=== PATIENT | female | born 1955 | race Caucasian/White ===

== ENCOUNTER 2017-07-31 10:42 | Outpatient (CLI) | payer BC ==
--- NOTE | 2017-07-31 11:36 | MMO ---
BILATERAL SCREENING MAMMOGRAM: DATE: 07/31/17 HISTORY: 61-year-old female for screening mammography. COMPARISON: 07/05/16, 06/30/15, 06/30/14. FINDINGS: Bilateral MLO and CC views of the breasts show scattered fibroglandular breast tissue. There are bhupinder ign-appearing calcifications in the right breast. Vascular calcifications are seen. There is no evid ence of suspicious mass, suspicious cluster of microcalcifications, or area of architectural distort ion. Interpretation of this mammogram was performed with the assistance of computer-aided detection. IMPRESSION: BIRADS 2: Benign Finding(s) Annual screening mammography is recommended. POS: LOUIS
== END 2017-07-31 10:43 | disposition home or self-care (01) ==
LOC: SCSMAMMO 10:42
PROVIDERS: ATTEND Family Medicine
DX: Z12.31 Encounter for screening mammogram for malignant neoplasm of breast (principal)
CPT/HCPCS: 77067; G0202

== ENCOUNTER 2017-12-04 16:32 | Outpatient (CLI) | payer BC | END 2017-12-04 16:33 | disposition home or self-care (01) | LOC: BICMRI 16:32 | PROVIDERS: ATTEND Anesthesiology Pain Medicine | DX: M54.16 Radiculopathy, lumbar region (principal); M48.061 Spinal stenosis, lumbar region without neurogenic claudication; M12.88 Other specific arthropathies, not elsewhere classified, other specified site | CPT/HCPCS: 72148 ==

== ENCOUNTER 2018-01-08 09:58 | Outpatient (CLI) | payer BC ==
[2018-01-08 11:11] LABS: Hemoglobin 13.5 g/dL (12.0-16.0); Mean Corpuscular HGB CONC 33.5 g/dL (32.0-36.0); Mean Corpuscular Hemoglobin 33.3 pg (27.0-31.0); Mean Corpuscular Volume 99.6 fl (81.0-99.0); Mean Platelet Volume 7.1 fL (7.4-10.4); Platelet Count 290 thou/uL (130-400); RBC Distribution Width 11.7 % (11.5-14.5); Red Blood Cell (RBC) Count 4.06 mill/uL (4.20-5.40); White Blood Cell (WBC) Count 9.7 thou/uL (4.8-10.8)
[2018-01-08 11:18] LABS: INR-International Normal Ratio 0.9; PTT 29.7 SEC (22.9-36.1); Prothrombin Time 12.5 SEC (12.0-14.7)
[2018-01-08 11:31] LABS: Anion Gap 11 mmol/L (10-20); BUN (Urea Nitrogen) 19 mg/dL (9.8-20.1); Calc. Creatinine Clearance 0 mL/min (70-130); Calcium 9.8 mg/dL (7.8-10.44); Carbon Dioxide 27 mmol/L (23-31); Chloride 103 mmol/L (98-107); Estimated GFR-MDRD 78; Glucose 93 mg/dL (80-115); Potassium 4.2 mmol/L (3.5-5.1); Sodium 137 mmol/L (136-145)
== END 2018-01-08 09:59 | disposition home or self-care (01) ==
LOC: LABBT 09:58
PROVIDERS: ATTEND Neurological Surgery
DX: Z01.818 Encounter for other preprocedural examination (principal); M48.061 Spinal stenosis, lumbar region without neurogenic claudication
CPT/HCPCS: 80048; 85027; 85610; 85730; 93005; 93010

== ENCOUNTER 2018-01-12 05:50 | Day surgery (SDC) | payer BC ==
[2018-01-12] MEDS ORDERED: CEFAZOLIN/Water 2 GM/20 ML SYRINGE ONE ×2 (06:00→06:50)
--- NOTE | 2018-01-12 06:28 | HP ---
HISTORY OF PRESENT ILLNESS: Ms. Rincon is a 62-year-old female that presents with low-back pain symptoms with neurogenic claudication. She has had these symptoms for about a year and has gotten worse over the time. She is unable to walk more than a block without pain in the leg. Leg pain is made worse with standing and walking. The pain is worse in the right leg, sometimes relieved with pain medication and bending forward and sitting down. She has had no physical therapy or injections in low back. She has had severe stenosis at L4- L5 that had differential of osteomyelitis or diskitis on MRI. However, she does not have any elevated ESR, CRP, or white blood cell count. IMAGING: MRI of the lumbar spine at [facility]. REVIEW OF SYSTEMS: Ten-point review of systems completed and is otherwise negative unless stated in the above HPI. PAST MEDICAL HISTORY: Hypertension, hyperlipidemia, rosacea. PAST SURGICAL HISTORY: x2, oophorectomy, colonoscopy, cystoscopy. FAMILY HISTORY: Father is diseased with Alzheimer's, hypertension. Mother is with colon cancer. She diagnosed with hypertension. Paternal grandfather is . Maternal grandmother is . SOCIAL HISTORY: The patient is a nonsmoker, no alcohol or drug use. She works at [employer] and she is . MEDICATIONS: 1. Nystatin 20 mg tablet 1 tablet every night before bed. 2. Aleve 220 mg tablet 1 tablet orally once a day. 3. Nystatin and triamcinolone topical 100,000 units per 0.1% cream applied topically p.m. 4. Potassium chloride ER 10 mEq tablet one tablet by mouth. 5. Benicar HCT 40/25 mg tablet 1 tablet by mouth each day. 6. Sodium sulfacetamide and sulfur topical 10% lotion apply daily. 7. Alprazolam 0.25 mg tablet 1/2 tablet twice a day p.r.n. 8. Toprol-XL 100 mg tablet extended release 24-hour 1 tablet once a day. 9. Metronidazole 1% gel application to affected area. 10. 1 hour prior to injction. ALLERGIES: GAVIN INHIBITORS causes facial swelling. PHYSICAL EXAMINATION: HEENT: Normocephalic, atraumatic. Hearing intact. Moist mucous membranes. Trachea is midline. Eyes: Pupils are equal and reactive to light. Extraocular muscles are intact. Sclerae is white, nonicteric. PSYCHIATRIC: Normal mood and affect. CARDIOVASCULAR: RRR, no distal cyanosis or clubbing noted Neurological: Sensory deficits bilaterally in the thighs, legs, and bent forward. ASSESSMENT: Lumbar region with neurogenic claudication. PLAN: The patient has failed conservative therapy with transforaminal epidural steroid injections and epidural steroid injections from Dr. Ball. She would like to opt for a laminectomy due to the leg pain. Dr. Gatica has offered a L4 through S1 laminectomy. If there is any further questions, please feel free to contact Neurosurgery. ERIN
[2018-01-12] MEDS ORDERED: Thrombin 5000 UNITS/5 ML VIAL ONE (06:31)
[2018-01-12] MEDS ORDERED: Bupivacaine HCl 0.5%/Epinephrine 1:200,000/PF 30 ml Vial ONE (06:31)
[2018-01-12] MEDS ORDERED: Sodium Chloride 0.9% 10 ML ONE ×2 (06:31→08:56)
[2018-01-12] MEDS ORDERED: Phenylephrine HCL 10 MG/ML VIAL ONE (06:42)
[2018-01-12] MEDS ORDERED: Fentanyl 250 MCG/5 ML VIAL ONE ×2 (06:47→09:53)
[2018-01-12] MEDS ORDERED: Midazolam HCl 2 mg/2 ml Vial ONE (06:50)
[2018-01-12] MEDS ORDERED: Ketorolac Tromethamine 30 MG/ML VIAL IM/IV PRN (09:58)
[2018-01-12] MEDS ORDERED: Non-Formulary Medication 1 EACH PO PRN (09:58)
[2018-01-12] MEDS ORDERED: Ondansetron HCl/PF 4 MG/2 ML Vial IVP PRN (09:58)
[2018-01-12] MEDS ORDERED: Promethazine HCl 25 MG/ML VIAL IM/IV PRN (09:58)
[2018-01-12] MEDS ORDERED: Ketorolac Tromethamine 30 MG/ML VIAL ONE (10:03)
--- NOTE | 2018-01-12 10:10 | OP ---
DATE OF PROCEDURE: 01/12/2018 SURGEON: Giovanni Gatica M.D. URBAN FORESTER: Clark West PA-C. PREOPERATIVE INDICATION: Treat pain, prevent neurological deterioration. PREOPERATIVE DIAGNOSES: Multilevel lumbar stenosis. POSTOPERATIVE DIAGNOSIS: Multilevel lumbar stenosis. OPERATIVE PROCEDURE: Decompressive laminectomy, medial facetectomy, foraminotomy L3-4, L4-5, L5-S1. PREOPERATIVE MEDICATION: Ancef 2 grams IV. DRAIN NUMBER: Zero. DRAIN TYPE: None. OPERATIVE DICTATION: The patient was brought to the operating room. General endotracheal anesthesia was induced. The patient was positioned on the operating table with her chest and hips supported by gel-filled chest rolls in a prone position. A lateral fluoro radiograph was used to plan our incisi on. The lumbar skin was sterilely prepped and draped. We opened our incision with a 10 blade knife and controlled bleeding with bipolar cautery. We used monopolar cautery to dissect through subcutane ous tissues to the thoracodorsal fascia. We incised the fascia in the midline and reflected the para spinal muscles off the spinous process and lamina of L3, L4, L5, and S1. A self-retaining retractor was placed. A lateral fluoro radiograph was used to confirm the levels upon which we were operating. We started our planned decompression at L4-5. We used bone rongeurs to remove the spinous processe s and Kerrison rongeurs to fashion a laminectomy. At L5-S1 we did the same thing. We undermined the lateral recesses. We ensured that the traversing and exiting nerve roots were well decompressed. T he stenosis above the L4 was more impressive even than on the MRI scan. We carried our decompressio n all the way to the top of L4 and removed the yellow ligament at L3-4 interspace as well as inferior portion of L3 lamina. We performed medial facetectomy there as well. We decompressed the L4 nerve roots in the lateral recess and out the foramen. We performed foraminotomy. We then ensured our dec ompression was adequate with Trejo ball probe. We passed this through the lateral recess and out th e foramen at L3-4 with L4 nerve root at L4-5 and L5-S1. We performed foraminotomies using foraminoto my Kerrisons over each of the 6 exiting nerve roots. We irrigated copiously with bacitracin irrigati on. We waxed the bone edges. We controlled ventral epidural bleeding with gentle bipolar cautery. We infused local anesthetic in the paraspinal muscles. We closed the wound in anatomic layers. We a pplied a sterile dressing. This was a clean case and no contamination.
[2018-01-12] MEDS ORDERED: HYDROcodone/Acetaminophen 5/325 mg Tablet ONE (12:46)
[2018-01-12] MEDS ORDERED: Lidocaine 1% PF 5 ML VIAL ONE (16:54)
[2018-01-12] MEDS ORDERED: PHENYLEPHRINE-NS 100 MCG/ML 10 ML SYRINGE ONE (16:54)
[2018-01-12] MEDS ORDERED: Dexamethasone 20 MG/5 ML VIAL ONE (16:54)
[2018-01-12] MEDS ORDERED: PROPOFOL 200 MG/20 ML VIAL ONE (16:54)
[2018-01-12] MEDS ORDERED: Ondansetron HCl/PF 4 MG/2 ML Vial ONE (16:54)
[2018-01-12] MEDS ORDERED: Glycopyrrolate 0.2 MG/ML 5 ML SYRINGE ONE (16:54)
== END 2018-01-12 15:04 | disposition home or self-care (01) ==
LOC: SDC 05:50
PROVIDERS: ATTEND Neurological Surgery
PROC: 01NB0ZZ Release Lumbar Nerve, Open Approach (ICD-10-PCS; principal; 2018-01-12)
DX: M48.062 Spinal stenosis, lumbar region with neurogenic claudication (principal); M48.07 Spinal stenosis, lumbosacral region; I10 Essential (primary) hypertension; E78.5 Hyperlipidemia, unspecified; L71.9 Rosacea, unspecified; F41.9 Anxiety disorder, unspecified; E66.9 Obesity, unspecified; Z68.39 Body mass index [BMI] 39.0-39.9, adult; Z79.1 Long term (current) use of non-steroidal anti-inflammatories (NSAID); Z79.52 Long term (current) use of systemic steroids; Z79.899 Other long term (current) drug therapy; Z88.8 Allergy status to other drugs, medicaments and biological substances
CPT/HCPCS: 76001; 96374; A4216; J0131; J0670; J1100; J1885; J2001; J2250; J2370; J2405; J2704; J3010; J3370; J3490

== ENCOUNTER 2018-08-04 11:16 | Outpatient (CLI) | payer BC | END 2018-08-04 11:17 | disposition home or self-care (01) | LOC: BICMAMMO 11:16 | PROVIDERS: ATTEND Family Medicine | DX: Z12.31 Encounter for screening mammogram for malignant neoplasm of breast (principal); Z80.3 Family history of malignant neoplasm of breast | CPT/HCPCS: 77063; 77067 ==

== ENCOUNTER 2018-10-20 15:04 | Outpatient (CLI) | payer BC ==
--- NOTE | 2018-10-20 16:08 | ULT ---
ULTRASOUND CAROTID DOPPLER STANDARD: 10/20/18 HISTORY: RX09.89 - left carotid bruit. COMPARISON: None. TECHNIQUE: Real time al scale, color doppler and spectral analysis of the extracranial carotid and vertebral a rteries was performed. There is antegrade flow of both vertebral arteries. No elevated peak systolic velocities in the inter nal carotid arteries. Dense calcifications o the right carotid bulb. Right ICA/CCA ratio is 1.16 and left ICA/CCA ratio is 1.07. IMPRESSION: No hemodynamically significant stenosis. POS: LOUIS
== END 2018-10-20 15:05 | disposition home or self-care (01) ==
LOC: SCSULT 15:04
PROVIDERS: ATTEND Family Medicine
DX: R09.89 Other specified symptoms and signs involving the circulatory and respiratory systems (principal)
CPT/HCPCS: 93880

== ENCOUNTER 2019-04-14 00:36 | Outpatient (CLI) | payer BC ==
[2019-04-14 10:08] LABS: #Basophils 0.1 thou/uL (0.0-0.2); #Eosinphils 0.2 thou/uL (0.0-0.7); #Lymphocytes 1.7 thou/uL (1.20-3.40); #Monocytes 0.9 thou/uL (0.11-0.59); #Neutrophils 6.4 thou/uL (1.40-6.50); %Basophils 0.8 % (0.0-1.0); %Eosinophils 1.8 % (0.0-10.0); %Lymphocytes 18.4 % (21.0-51.0); %Monocytes 10.1 % (0.0-10.0); %Neutrophils 68.8 % (42.0-75.0); Hemoglobin 13.7 g/dL (12.0-16.0); Mean Corpuscular HGB CONC 33.2 g/dL (32.0-36.0); Mean Corpuscular Hemoglobin 32.7 pg (27.0-31.0); Mean Corpuscular Volume 98.6 fL (78.0-98.0); Mean Platelet Volume 8.3 fL (7.4-10.4); Platelet Count 293 thou/uL (130-400); Red Blood Cell (RBC) Count 4.18 mill/uL (4.20-5.40); White Blood Cell (WBC) Count 9.3 thou/uL (4.8-10.8)
[2019-04-14 10:29] LABS: Anion Gap 16 mmol/L (10-20); BUN (Urea Nitrogen) 19 mg/dL (9.8-20.1); Calc. Creatinine Clearance 0 mL/min (70-130); Calcium 10.6 mg/dL (7.8-10.44); Carbon Dioxide 27 mmol/L (23-31); Chloride 99 mmol/L (98-107); Estimated GFR-MDRD 84; Glucose 87 mg/dL (80-115); Potassium 4.7 mmol/L (3.5-5.1); Sodium 137 mmol/L (136-145)
--- NOTE | 2019-04-16 21:15 | EKG ---
Test Reason : Blood Pressure : / mmHG Vent. Rate : 066 BPM Atrial Rate : 066 BPM P-R Int : 186 ms QRS Dur : 100 ms QT Int : 388 ms P-R-T Axes : 069 061 068 degrees QTc Int : 406 ms Normal sinus rhythm Cannot rule out Anterior infarct (cited on or before 08-JAN-2018) Abnormal ECG When compared with ECG of 08-JAN-2018 10:55, No significant change was found Confirmed by Ayad MOMIN ([id number]) on 04/16/2019 9:15:06 PM Referred By: LISA Confirmed By:Ayad MOMIN
== END 2019-04-14 00:37 | disposition home or self-care (01) ==
LOC: LABBT 00:36
PROVIDERS: ATTEND Orthopaedic Surgery
DX: Z01.818 Encounter for other preprocedural examination (principal); M19.012 Primary osteoarthritis, left shoulder
CPT/HCPCS: 80048; 85025; 87081; 93005; 93010

== ENCOUNTER 2019-10-20 16:30 | Inpatient (IN) | payer BC ==
[2019-10-21 15:32] VITALS: BMI 37.3
[2019-11-01] MEDS ORDERED: Sodium Chloride 0.9% 100 ML ONE (06:01)
[2019-11-01] MEDS ORDERED: Tranexamic Acid 1,000 MG/10 ML VIAL ONE (06:01)
[2019-11-01] MEDS ORDERED: Midazolam HCl 2 mg/2 ml Vial ONE (06:15)
[2019-11-01] MEDS ORDERED: Vancomycin 1.5 GRAM/300 ML BAG 1.5 GM in Premix Bag 1 BAG IVPB SCH (06:15)
[2019-11-01] MEDS ORDERED: Fentanyl 100 MCG/2 ML VIAL ONE ×2 (06:15→09:21)
[2019-11-01] MEDS ORDERED: Aspirin 81 mg Enteric Coated Tablet PO SCH (07:00)
[2019-11-01] MEDS ORDERED: traMADol HCl 50 MG TAB PO PRN ×2 (07:07)
[2019-11-01] MEDS ORDERED: Zolpidem Tartrate 5 MG TAB PO PRN (07:07)
[2019-11-01] MEDS ORDERED: Promethazine HCl 25 MG/ML VIAL IM PRN ×2 (07:07→08:06)
[2019-11-01] MEDS ORDERED: Ondansetron PF 4 MG/2 ML Vial IVP PRN (07:07)
[2019-11-01] MEDS ORDERED: Ropivacaine HCl/PF 250 ML in Premix Bag 1 BAG NERVE BLCK SCH (07:07)
[2019-11-01] MEDS ORDERED: HYDROcodone/Acetaminophen 10/325 mg Tablet PO PRN ×2 (07:07)
[2019-11-01] MEDS ORDERED: Fentanyl 100 MCG/2 ML VIAL SLOW IVP PRN (07:08)
[2019-11-01] MEDS ORDERED: Acetaminophen 325 MG TAB PO PRN (07:09)
[2019-11-01] MEDS ORDERED: Promethazine HCl 25 MG/ML VIAL SLOW IVP PRN (08:06)
[2019-11-01] MEDS ORDERED: Ondansetron HCl/PF 4 MG/2 ML Vial IVP PRN (08:06)
[2019-11-01] MEDS ORDERED: Promethazine HCl 25 MG/ML VIAL ONE (09:21)
[2019-11-01] MEDS ORDERED: Lidocaine 1% PF 5 ML VIAL ONE (10:02)
[2019-11-01] MEDS ORDERED: Ropivacaine 0.2% HCl/PF (40 MG/20 ML VIAL) ONE (10:02)
[2019-11-01] MEDS ORDERED: Ketorolac Tromethamine 30 MG/ML VIAL ONE (10:02)
[2019-11-01] MEDS ORDERED: ePHEDrine/0.9% NaCl/PF SYRINGE 50 mg/10 ml ONE (10:02)
[2019-11-01] MEDS ORDERED: PHENYLEPHRINE-NS 100 MCG/ML 10 ML SYRINGE ONE (10:02)
[2019-11-01] MEDS ORDERED: Glycopyrrolate 0.2 MG/ML 5 ML SYRINGE ONE (10:02)
[2019-11-01] MEDS ORDERED: Ondansetron PF 4 MG/2 ML Vial ONE (10:02)
[2019-11-01] MEDS ORDERED: PROPOFOL 200 MG/20 ML VIAL ONE (10:02)
[2019-11-01] MEDS ORDERED: Ropivacaine 0.5% HCl/PF (150 MG/30 ML VIAL) ONE (10:02)
[2019-11-01] MEDS ORDERED: Rocuronium Bromide 10 MG/ML (10ML VIAL) ONE (10:02)
[2019-11-01] MEDS: Dextrose 5 %-0.45 % NaCl 1,000 ML IV SCH ×2 (10:30→23:23)
[2019-11-01] MEDS: Losartan/Hydrochlorothiazide 100 mg/25 mg Tablet PO SCH (11:19)
[2019-11-01] MEDS: Amlodipine 5 MG TAB PO SCH (11:19)
[2019-11-01] MEDS: ALPRAZolam 0.25 MG TAB PO SCH (11:19)
[2019-11-01] MEDS: Potassium Chloride 10 MEQ TAB PO SCH (11:20)
[2019-11-01] MEDS: Ketorolac Tromethamine 30 MG/ML VIAL IVP SCH ×3 (11:44→23:12)
[2019-11-01] MEDS ORDERED: Ketorolac Tromethamine 30 MG/ML VIAL IVP SCH (12:00)
[2019-11-01] MEDS: CEFAZOLIN 2 GM in Premix Bag 1 BAG IVPB SCH ×2 (13:15→21:01)
[2019-11-01] MEDS ORDERED: Vancomycin HCl 1 GM in Premix Bag 1 BAG IVPB SCH (18:00)
[2019-11-01] MEDS ORDERED: Atorvastatin Calcium 10 MG TAB PO SCH (21:00)
[2019-11-02] MEDS: Dextrose 5 %-0.45 % NaCl 1,000 ML IV SCH (03:55)
[2019-11-02] MEDS: Ketorolac Tromethamine 30 MG/ML VIAL IVP SCH ×2 (05:36→12:46)
[2019-11-02] MEDS ORDERED: Ropivacaine 0.2% 550 ML 550 ML NERVE BLCK SCH (08:15)
[2019-11-02] MEDS: Potassium Chloride 10 MEQ TAB PO SCH ×2 (08:39→08:41)
[2019-11-02] MEDS: Losartan/Hydrochlorothiazide 100 mg/25 mg Tablet PO SCH (08:39)
[2019-11-02] MEDS: ALPRAZolam 0.25 MG TAB PO SCH (08:39)
[2019-11-02] MEDS: Amlodipine 5 MG TAB PO SCH (08:43)
[2019-11-02] MEDS ORDERED: Polyethylene Glycol 3350 17 GM Packet PO PRN (10:07)
[2019-11-02] MEDS ORDERED: Polyethylene Glycol 3350 17 GM Packet PO SCH (10:15)
--- NOTE | 2019-11-02 10:51 | OP ---
DATE OF PROCEDURE: 11/01/2019 PREOPERATIVE DIAGNOSIS: Degenerative joint disease, left shoulder. POSTOPERATIVE DIAGNOSIS: Degenerative joint disease, left shoulder with severe left biceps tendinitis. PROCEDURE PERFORMED: Left total shoulder arthroplasty with biceps tenodesis. NEWS PRODUCER: Leeroy. ESTIMATED BLOOD LOSS: 150. SPECIMENS: None. DRAINS: None. COMPLICATIONS: None. IMPLANTS USED: Glenoid the stem is 3C Flex and the head is 39 x 14 high offset. NARRATIVE REPORT: After standard deltopectoral approach, I examined the biceps tendon sheath which was inflamed and had a very thick bursal layer over the top with underlying ganglion. Biceps was opened. The biceps tendon sheath was opened. Biceps was in poor condition. It was taken off the superior glenoid tubercle and tacked and then tenodesed using #5 Ethibond suture to bone below the joint. The subscapularis was taken off using an osteotome to make a small lesser trochanteric osteotomy, tagged with four #5 Ethibond sutures. Head was dislocated. Osteophytes were trimmed. I released the anterior capsule, got the subscapularis to an elastic consistency. I then cut the humeral head at a 135-degree angle and trimmed the osteophytes. The head was then broached and sized appropriately. A trial prosthesis was left in the shaft and I approached the glenoid. Bone spurs were removed from around the glenoid. True center of the glenoid was identified. I made a single drill hole and reamed with an appropriate size reamer, trimmed osteophytes, punched the keel and did a trial reduction with the glenoid which appeared to be an appropriate fit. Trials were removed and irrigation was performed. The glenoid was punched into place and cement was allowed to cure. Extraneous cement was removed. Attention was turned back to the humerus where trial heads were used and the appropriate size was confirmed with the appropriate elasticity of the tissues. Trial was removed. Irrigation was performed. Four #5 Ethibond sutures were placed through the lesser tuberosity. The permanent implant was impacted into place. The subscapularis was repaired in a double-row fashion. The rotator interval was repaired with #1 Ethibond. Irrigation performed again. Deltopectoral interval was tacked closed with 0 Vicryl, subcutaneous closed with 2-0 Vicryl. The skin was closed with sophia. Sterile dressings applied. The patient was placed in a sling. There were no complications. Job ID: [id number]
[2019-11-02 11:38] VITALS: BP 108/71; TEMP 98.1
== END 2019-11-02 14:33 | disposition home or self-care (01) | DRG 483 ==
LOC: SJJU 11-01 05:49 → SURG B 11-01 10:39
PROVIDERS: ADMIT Orthopaedic Surgery; ATTEND Orthopaedic Surgery
PROC: 0RRK0JZ Replacement of Left Shoulder Joint with Synthetic Substitute, Open Approach (ICD-10-PCS; principal; 2019-11-01)
PROC: 0LS40ZZ Reposition Left Upper Arm Tendon, Open Approach (ICD-10-PCS; 2019-11-01)
DX: M19.012 Primary osteoarthritis, left shoulder (principal); M75.22 Bicipital tendinitis, left shoulder; I10 Essential (primary) hypertension; E78.5 Hyperlipidemia, unspecified; M10.9 Gout, unspecified; E66.9 Obesity, unspecified; F41.9 Anxiety disorder, unspecified; Z68.37 Body mass index [BMI] 37.0-37.9, adult; Z79.899 Other long term (current) drug therapy
CPT/HCPCS: A4306; J0690; J1885; J2001; J2250; J2405; J2550; J2704; J2795; J3010; J3370; J3490

== ENCOUNTER 2019-10-21 10:48 | Outpatient (CLI) | payer BC ==
--- NOTE | 2019-10-21 11:22 | MMO ---
Bilateral MAMMO Bilat Screen [facility]. CLINICAL HISTORY: Patient is 63 years old and is seen for screening. The patient has the following family history of breast cancer: maternal aunt, at age 54, malignant (generic). The patient has no personal history of cancer. VIEWS: The views performed were: bilateral craniocaudal with tomosynthesis and bilateral mediolateral oblique with tomosynthesis. FILMS COMPARED: The present examination has been compared to a prior imaging study performed at [facility] on 08/04/2018. This study has been interpreted with the assistance of computer-aided detection. MAMMOGRAM FINDINGS: There are scattered fibroglandular densities. There is an asymmetry seen in the inner region of the left breast. In the right breast, there are no suspicious masses, calcifications or areas of architectural distortion. IMPRESSION: ASYMMETRY IN THE LEFT BREAST REQUIRES ADDITIONAL EVALUATION. RECOMMEND DIAGNOSTIC MAMMOGRAM. ULTRASOUND MAY ALSO PROVE USEFUL AT RECALL. THE RESULTS OF THIS EXAM WERE SENT TO THE PATIENT. ACR BI-RADS Category 0 - Incomplete: Need additional imaging evaluation. [facility] will notify the patient of the need for additional imaging services. MAMMOGRAPHY NOTE: 1. A negative mammogram report should not delay a biopsy if a dominant of clinically suspicious mass is present. 2. Approximately 10% to 15% of breast cancers are not detected by mammography. 3. Adenosis and dense breasts may obscure an underlying neoplasm. Reported by: VIPUL LANIER MD Electonically Signed: [id number]
== END 2019-10-21 10:49 | disposition home or self-care (01) ==
LOC: BICMAMMO 10:48
PROVIDERS: ATTEND Family Medicine
DX: Z12.31 Encounter for screening mammogram for malignant neoplasm of breast (principal); Z80.3 Family history of malignant neoplasm of breast; N64.89 Other specified disorders of breast
CPT/HCPCS: 77063; 77067

== ENCOUNTER 2019-10-21 15:18 | Outpatient (CLI) | payer BC ==
[2019-10-21 16:31] LABS: Anion Gap 13 mmol/L (10-20); BUN (Urea Nitrogen) 24 mg/dL (9.8-20.1); Calc. Creatinine Clearance 0 mL/min (70-130); Calcium 10.3 mg/dL (7.8-10.44); Carbon Dioxide 28 mmol/L (23-31); Chloride 102 mmol/L (98-107); Estimated GFR-MDRD 66; Glucose 97 mg/dL (80-115); Potassium 3.9 mmol/L (3.5-5.1); Sodium 139 mmol/L (136-145)
== END 2019-10-21 15:19 | disposition home or self-care (01) ==
LOC: LABBT 15:18
PROVIDERS: ATTEND Orthopaedic Surgery
DX: Z01.812 Encounter for preprocedural laboratory examination (principal); M19.012 Primary osteoarthritis, left shoulder
CPT/HCPCS: 80048; 87081

== ENCOUNTER 2019-10-22 13:36 | Outpatient (CLI) | payer BC ==
--- NOTE | 2019-10-22 14:13 | MMO ---
Left Breast MAMMO Unilat Diag DDI LT+SHARON. CLINICAL HISTORY: Patient is 63 years old and is seen for diagnostic exam. VIEWS: The views performed were: . FILMS COMPARED: The present examination has been compared to prior imaging studies performed at [facility] on 08/04/2018 and 10/21/2019. This study has been interpreted with the assistance of computer-aided detection. MAMMOGRAM FINDINGS: There are scattered fibroglandular densities. Finding 1: There are stable benign appearing calcifications seen in the left breast. Finding 2: There is a stable nodule with circumscribed margins seen in the posterior inner region of the left breast. There are no suspicious masses, suspicious calcifications, or new areas of architectural distortion. IMPRESSION: THERE IS NO MAMMOGRAPHIC EVIDENCE OF MALIGNANCY. A ROUTINE FOLLOW-UP MAMMOGRAM IN 1 YEAR IS RECOMMENDED. THE RESULTS OF THIS EXAM WERE SENT TO THE PATIENT. ACR BI-RADS Category 2 - Benign finding MAMMOGRAPHY NOTE: 1. A negative mammogram report should not delay a biopsy if a dominant of clinically suspicious mass is present. 2. Approximately 10% to 15% of breast cancers are not detected by mammography. 3. Adenosis and dense breasts may obscure an underlying neoplasm. Reported by: EMILE TOLLIVER MD Electonically Signed: [id number]
== END 2019-10-22 13:37 | disposition home or self-care (01) ==
LOC: BICMAMMO 13:36
PROVIDERS: ATTEND Family Medicine
DX: Z12.31 Encounter for screening mammogram for malignant neoplasm of breast (principal)
CPT/HCPCS: G0279

== ENCOUNTER 2020-08-10 12:54 | Outpatient (CLI) | payer MEDICARE ==
--- NOTE | 2020-08-10 15:23 | ULT ---
TRANSABDOMINAL TRANSVAGINAL PELVIC ULTRASOUND DATE:: 08/10/2020 12:00 AM CLINICAL HISTORY: Pelvic pain. COMPARISON: CT the abdomen and pelvis dated October 14, 2016 TECHNIQUE: Grayscale, color Doppler and spectral Doppler images were obtained of the pelvis see a tra nsabdominal and transvaginal approach FINDINGS: UTERUS: Size: 6.3 x 2.8 x 3.5 cm Mass: There are prominent calcified fibroids. One of the largest is seen within the fundus measuring 2.6 x 2.2 x 2.9 cm. Additional fundal fibroid is seen measuring 1.9 cm. There is smaller fibroids seen within the posterior uterine body. Cervix: Small nabothian cyst is seen within the cervix. Endometrial Thickness: 2.9 mm. OVARIES: Not seen CUL-DE-SAC: No free fluid IMPRESSION: 1. Fibroid uterus. 2. Nonvisualization of the ovaries. 3. No free fluid. 4. Nabothian cyst in the cervix.
== END 2020-08-10 12:55 | disposition home or self-care (01) ==
LOC: SCSULT 12:54
PROVIDERS: ATTEND Family Medicine
DX: R10.2 Pelvic and perineal pain (principal); D25.9 Leiomyoma of uterus, unspecified; N88.8 Other specified noninflammatory disorders of cervix uteri
CPT/HCPCS: 76856

== ENCOUNTER 2020-10-23 08:23 | Outpatient (CLI) | payer MEDICARE ==
--- NOTE | 2020-10-23 08:59 | BD ---
DEXA bone density scan: 10/23/2020 COMPARISON: None. HISTORY: Postmenopausal female undergoing screening for osteoporosis. FINDINGS: Lumbar Spine BMD (g/cm2) L1 0.965 T-Score -0.2 L2 1.082 T-Score 0.5 L3 1.029 T-Score -0.5 L4 1.107 T-Score 0.4 L1-L4 1.044 T-Score 0.0 Femoral Neck 0.789 T-Score -0.5 Total Femur 0.924 T-Score -0.1 The FRAX-WHO fracture risk assessment tool is not reported as T-scores are at or above -1.0. IMPRESSION: Normal bone mineral density examination. Transcribed Date/Time: 10/23/2020 9:35 AM
--- NOTE | 2020-10-23 09:19 | MMO ---
Bilateral MAMMO Bilat Screen [facility]. CLINICAL HISTORY: Patient is 64 years old and is seen for screening. The patient has the following family history of breast cancer: maternal aunt, at age 54, malignant (generic). The patient has no personal history of cancer. VIEWS: The views performed were: bilateral craniocaudal with tomosynthesis and bilateral mediolateral oblique with tomosynthesis. FILMS COMPARED: The present examination has been compared to prior imaging studies performed at [facility] on 07/31/2017, 08/04/2018, 10/21/2019 and 10/22/2019. This study has been interpreted with the assistance of computer-aided detection. MAMMOGRAM FINDINGS: There are scattered fibroglandular densities. There are no suspicious masses, suspicious calcifications, or new areas of architectural distortion. IMPRESSION: THERE IS NO MAMMOGRAPHIC EVIDENCE OF MALIGNANCY. A ROUTINE FOLLOW-UP MAMMOGRAM IN 1 YEAR IS RECOMMENDED. THE RESULTS OF THIS EXAM WERE SENT TO THE PATIENT. ACR BI-RADS Category 1 - Negative MAMMOGRAPHY NOTE: 1. A negative mammogram report should not delay a biopsy if a dominant of clinically suspicious mass is present. 2. Approximately 10% to 15% of breast cancers are not detected by mammography. 3. Adenosis and dense breasts may obscure an underlying neoplasm. Reported by: ADAM LEE MD Electonically Signed: [id number]
== END 2020-10-23 08:24 | disposition home or self-care (01) ==
LOC: BICMAMMO 08:23
PROVIDERS: ATTEND Family Medicine
DX: Z12.31 Encounter for screening mammogram for malignant neoplasm of breast (principal); Z13.820 Encounter for screening for osteoporosis; N95.9 Unspecified menopausal and perimenopausal disorder; Z80.3 Family history of malignant neoplasm of breast
CPT/HCPCS: 77063; 77067; 77080

== ENCOUNTER 2021-10-23 12:13 | Outpatient (CLI) | payer MEDICARE | END 2021-10-23 12:14 | disposition home or self-care (01) | LOC: BICRAD 12:13 | PROVIDERS: ATTEND Nurse Practitioner Family | DX: M25.472 Effusion, left ankle (principal); M25.572 Pain in left ankle and joints of left foot; M25.772 Osteophyte, left ankle; Z68.41 Body mass index [BMI] 40.0-44.9, adult ==

== ENCOUNTER 2021-10-29 09:24 | Outpatient (CLI) | payer MEDICARE | END 2021-10-29 09:25 | disposition home or self-care (01) | LOC: BICMAMMO 09:24 | PROVIDERS: ATTEND Family Medicine | DX: Z12.31 Encounter for screening mammogram for malignant neoplasm of breast (principal); Z80.3 Family history of malignant neoplasm of breast | CPT/HCPCS: 77063; 77067 ==

== ENCOUNTER 2022-11-13 10:41 | Outpatient (CLI) | payer MEDICARE | END 2022-11-13 10:42 | disposition home or self-care (01) | LOC: BICMAMMO 10:41 | PROVIDERS: ATTEND Family Medicine | DX: Z12.31 Encounter for screening mammogram for malignant neoplasm of breast (principal); Z13.820 Encounter for screening for osteoporosis; R92.1 Mammographic calcification found on diagnostic imaging of breast; Z91.89 Other specified personal risk factors, not elsewhere classified; Z80.3 Family history of malignant neoplasm of breast | CPT/HCPCS: 77063; 77067; 77080 ==

== ENCOUNTER 2023-04-17 09:09 | Outpatient (CLI) | payer MEDICARE | END 2023-04-17 09:10 | disposition home or self-care (01) | LOC: BICULT 09:09 | PROVIDERS: ATTEND Family Medicine | DX: R10.32 Left lower quadrant pain (principal); D25.9 Leiomyoma of uterus, unspecified | CPT/HCPCS: 36415; 76856; 80053; 80061; 85025 ==

== ENCOUNTER 2023-10-30 05:43 | Day surgery (SDC) | payer MEDICARE ==
[2023-10-29 08:51] VITALS: BMI 37.0
[2023-10-30] MEDS ORDERED: Vancomycin (BATCH) 1.5 GM/300 ML BAG ONE (06:08)
[2023-10-30] MEDS ORDERED: Tranexamic Acid 1,000 MG/10 ML VIAL ONE (06:08)
[2023-10-30] MEDS ORDERED: Sodium Chloride 0.9% 100 ML ONE ×2 (06:08→06:57)
[2023-10-30] MEDS ORDERED: PROPOFOL 20 ML ONE (06:17)
[2023-10-30] MEDS ORDERED: fentaNYL PF 100 MCG/2 ML SYRINGE ONE (06:17)
[2023-10-30] MEDS ORDERED: Ondansetron PF 4 MG/2 ML Vial ONE (06:18)
[2023-10-30] MEDS ORDERED: Ketorolac Tromethamine 30 MG (1 mL) VIAL ONE (06:18)
[2023-10-30] MEDS ORDERED: Rocuronium Bromide 10 MG/ML (10ML VIAL) ONE (06:18)
[2023-10-30] MEDS ORDERED: Dexamethasone 4 mg/ml Vial ONE (06:18)
[2023-10-30] MEDS ORDERED: fentaNYL 50 mcg/mL 1 mL Vial ONE (06:34)
[2023-10-30] MEDS ORDERED: Midazolam HCl 2 mg/2 ml Vial ONE (06:34)
[2023-10-30] MEDS ORDERED: CEFAZOLIN 2 GM VIAL ONE (06:57)
[2023-10-30] MEDS ORDERED: HYDROcodone/Acetaminophen 10/325 mg Tablet PO PRN ×4 (07:02→07:45)
[2023-10-30] MEDS ORDERED: Lactated Ringer's 1,000 ML IV SCH (07:15)
[2023-10-30] MEDS ORDERED: Ropivacaine 0.5% HCl/PF (150 MG/30 ML VIAL) ONE (07:27)
[2023-10-30] MEDS ORDERED: Lidocaine 1% (PF) 30 ML VIAL ONE (07:27)
[2023-10-30] MEDS ORDERED: fentaNYL 50 mcg/mL 1 mL Vial SLOW IVP PRN (07:37)
[2023-10-30] MEDS ORDERED: Ropivacaine 0.2% 550 ML 550 ML NERVE BLCK SCH (07:45)
[2023-10-30] MEDS ORDERED: traMADol HCl 50 MG TAB PO PRN ×2 (07:45)
[2023-10-30] MEDS ORDERED: Promethazine HCl 25 MG/ML VIAL IM PRN (07:45)
[2023-10-30] MEDS ORDERED: Ondansetron PF 4 MG/2 ML Vial IVP PRN (07:45)
[2023-10-30] MEDS ORDERED: Zolpidem Tartrate 5 MG TAB PO PRN (07:45)
[2023-10-30] MEDS ORDERED: PHENYLEPHRINE-NS 100 MCG/ML 10 ML SYRINGE ONE (08:51)
[2023-10-30] MEDS ORDERED: Glycopyrrolate 0.2 MG/ML 5 ML SYRINGE ONE (08:59)
[2023-10-30] MEDS ORDERED: NEOSTIGMINE 3 MG/3 ML SYR 3 MG/3 ML SYRINGE ONE (08:59)
[2023-10-30] MEDS ORDERED: Cholecalciferol 1,000 UNITS (25 MCG) TAB PO SCH ×2 (09:00)
[2023-10-30] MEDS ORDERED: Rosuvastatin 20 MG TAB PO SCH (09:00)
[2023-10-30] MEDS ORDERED: Amlodipine 5 MG TAB PO SCH (09:00)
[2023-10-30] MEDS ORDERED: Non-Formulary Item 1 EACH (Lactobacillus Acidophilus [Probiotic] 1 CAPSULE Capsule) PO SCH (09:00)
[2023-10-30] MEDS ORDERED: METRONIDAZOLE TOP SCH ×2 (09:00)
[2023-10-30] MEDS ORDERED: Saccharomyces boulardii 250 MG CAP PO SCH (09:00)
[2023-10-30] MEDS ORDERED: Ezetimibe 10 MG TAB PO SCH (09:00)
[2023-10-30] MEDS ORDERED: Allopurinol 100 MG TAB PO SCH (09:00)
[2023-10-30] MEDS ORDERED: Potassium Chloride 10 MEQ TAB PO SCH ×2 (09:00)
[2023-10-30] MEDS ORDERED: Aspirin 81 mg Enteric Coated Tablet PO SCH (09:00)
[2023-10-30] MEDS ORDERED: Ketorolac Tromethamine 30 MG (1 mL) VIAL IVP SCH ×2 (12:00)
[2023-10-30] MEDS ORDERED: CEFAZOLIN 2 GM in Sodium Chloride 0.9% 100 ML IVPB SCH (15:00)
[2023-10-31] MEDS ORDERED: Losartan 25 MG TAB PO SCH (09:00)
[2023-10-31] MEDS ORDERED: Hydrochlorothiazide 25 MG TAB PO SCH (09:00)
== END 2023-10-30 13:45 | disposition home or self-care (01) ==
LOC: SDC 05:43
PROVIDERS: ATTEND Orthopaedic Surgery
PROC: 0RQG0ZZ Repair Right Acromioclavicular Joint, Open Approach (ICD-10-PCS; principal; 2023-10-30)
DX: M19.011 Primary osteoarthritis, right shoulder (principal); M75.21 Bicipital tendinitis, right shoulder; I10 Essential (primary) hypertension; E78.5 Hyperlipidemia, unspecified; F10.90 Alcohol use, unspecified, uncomplicated; Z98.890 Other specified postprocedural states; Z90.721 Acquired absence of ovaries, unilateral; Z79.899 Other long term (current) drug therapy
CPT/HCPCS: 23472; A4306; C1776 ×4; J3010; J3370; J1100; J1885; J2001; J2250; J2405; J2704; J2795; J3490

== ENCOUNTER 2023-12-19 12:30 | Outpatient (CLI) | payer MEDICARE | END 2023-12-19 12:31 | disposition home or self-care (01) | LOC: BICMAMMO 12:30 | PROVIDERS: ATTEND Family Medicine | DX: Z12.31 Encounter for screening mammogram for malignant neoplasm of breast (principal); Z80.3 Family history of malignant neoplasm of breast | CPT/HCPCS: 77063; 77067 ==